=== PATIENT | male | born 1970 | race Two or more races ===

== ENCOUNTER 2025-05-08 19:57 | Emergency (ER) | payer MEDICAID, OTHER ==
[~2025-05-08] VITALS: Ht 175.3 cm; Wt 109.0 kg
--- NOTE | 2025-05-08 20:02 | ED.PDOC ---
HPI Comments 54 y/o obese M presents with c/c laceration to right thumb. Patient endorses on cutting himself on accident when using a steak knife. Bleeding is controlled. Denies any additional injuries in addition to numbness, tingling, or further associated symptoms. Last tetanus shot was 2x years ago. Time Seen by MD: 20:00 Primary Care Provider: NONE Reviewed Notes: Nurses Notes, Medications, Allergies Allergies: Coded Allergies: NO KNOWN ALLERGIES (Unverified , 03/12/16) Information Source: Patient Mode of Arrival: Ambulatory Severity: Moderate Severity of Laceration: Controlled Bleeding Complexity: Simple Timing: Hours Prehospital treatment: NTG Laceration Location: Digit #1 (right ) Mechanism: Knife Last Tetanus: UTD Laceration Length (cm): 2 Skin Type: Avulsion Depth of Injury: Skin Associated Signs and Symptoms: None Past Medical History PAST MEDICAL HISTORY: Denies Surgical History: Denies all surgeries Family History Family History: Unobtainable Social History Smoker: Non-Smoker Alcohol: Denies ETOH Use Drugs: Denies Drug Use Lives In: Home All Other Systems: Reviewed and Negative (Comprehensive review of systems are negative unless otherwise stated in HPI) Physical Exam General Appearance: No Apparent Distress, Obese HEENT: Normal ENT Inspection, Pharynx Normal, TMs Normal Neck: Full Range of Motion, Non-Tender, Normal, Normal Inspection Respiratory: Chest Non-Tender, Lungs Clear, No Accessory Muscle Use, No Respiratory Distress, Normal Breath Sounds Cardiovascular: No Edema, No JVD, No Murmur, No Gallop, Normal Peripheral Pulses, Regular Rate/Rhythm Breast Exam: Deferred Gastrointestinal: No Organomegaly, Non Tender, No Pulsatile Mass, Normal Bowel Sounds, Soft Genitalia: Deferred Pelvic: Deferred Rectal: Deferred Extremities: No calf tenderness, Normal capillary refill, Normal inspection, Normal range of motion, Non-tender, No pedal edema Musculoskeletal : Apperance: Normal Neurologic: Alert, imaging technician II-XII nml as Tested, No Motor Deficits, Normal Affect, Normal Mood, No Sensory Deficits Cerebellar Function: Normal Reflexes: Normal Skin: Dry, Normal Color, Warm, Wounds (1.5 cm alvusion wound to right thumb ) Lymphatic: No Adenopathy Was a procedure done? Was a procedure done?: Yes Sedation Sedation?: No Informed consent obtained: Yes Laceration Repair : Location 1st digit on right hand Length 1.5 Anesthetic: Lidocaine, Without epi Laceration Repair Prep: Saline, Betadine, Shur-Clens, by Irrigation, Manual Scrub Laceration Repair Wound Comple: epidermis/dermis repair Laceration Repair: Number of sutures (1x 3.0 ethilon ), Skin Informed consent obtained: Yes Risks, benefits, and alternati: Yes Differential diagnosis Generic Laceration: Fracture, Retained Foriegn Body, Neurovascular Injury, Tendon Injury, Avulsion X-Ray, Labs, Meds, VS Vital Signs Date Time Temp Pulse Resp B/P (MAP) Pulse Ox O2 Delivery O2 Flow Rate FiO2 05/08/25 20:15 98.7 93 16 117/88 (98) 96 98.7 X-Ray, Labs, Meds, VS Comment see procedure note. Follow up in 5-7 days for suture removal. ER return precautions given patient indicates understanding agrees with discharge plan of care. Time of 1ST Reevaluation: 20:01 Reevaluation 1ST: Unchanged Time of 2ND Reevaluation: 21:15 Reevaluation 2ND: Improved Patient Education/Counseling: Diagnosis, Treatment, Prognosis, Need For Follow Up Family Education/Counseling: No Family Present Departure 1 Departure Time of Disposition: 21:14 Impression: Primary Impression: Laceration of thumb without damage to nail Qualified Codes: S61.011A - Laceration without foreign body of right thumb without damage to nail, initial encounter Disposition: HOME / SELF CARE / HOMELESS Condition: Stable Discharged With: Self Critical Care Note Critical Care Time?: No Stability Stability form required: No Heart Score Heart Score: Heart Score Response (Comments) Value History N/A 0 EKG N/A 0 Age N/A 0 Risk Factors N/A 0 Troponin N/A 0 Total 0 I personally scribed for ER ([email or web address]) on 05/08/25 at 20:53. Electronically submitted by Shun Joyner ([email or web address]). I personally scribed for ER ([email or web address]) on 05/08/25 at 20:53. Electronically submitted by Shun Joyner ([email or web address]). NADYA DAVIS PATHOLOGY SUPERVISOR May 08, 2025 20:01 ER May 08, 2025 20:53
[2025-05-08 20:15] VITALS: BP 117/88; PULSE 93; RESP 16; TEMP 98.7; O2SAT 96
== END 2025-05-08 22:45 | disposition home or self-care (01) ==
LOC: ER 19:57
DX: S61.011A Laceration without foreign body of right thumb without damage to nail, initial encounter (principal); E66.9 Obesity, unspecified; Z68.35 Body mass index [BMI] 35.0-35.9, adult; W26.0XXA Contact with knife, initial encounter; Y93.89 Activity, other specified; Y92.89 Other specified places as the place of occurrence of the external cause; Y99.8 Other external cause status
CPT/HCPCS: 12001; 99282; J2003